=== PATIENT | male | born 1950 | race Caucasian/White ===

== ENCOUNTER 2018-02-01 12:27 | Emergency (ER) | payer MEDICARE, BC ==
[~2018-02-01] VITALS: Ht 188 cm; Wt 131.5 kg
[2018-02-01 12:36] VITALS: BP 172/068; Ht 188 cm; Wt 131.5 kg
[2018-02-01 13:33] LABS: BASOPHILS 0.2 % (0-2); EOSINOPHILS 0.5 % (0-7); HEMATOCRIT 30.6 % (42.0-54.0); HEMOGLOBIN 9.7 g/dL (13.5-17.5); IMMATURE GRANULOCYTES 0.2 % (0-5); LYMPHOCYTES 13.1 % (15-50); MCHC 31.7 g/dL (31.0-37.0); MCV 88.4 fL (80.0-100.0); MEAN PLATELET VOLUME 10.4 fL (7.4-10.4); MONOCYTES 7.8 % (2-11); NEUTROPHILS 78.2 % (40-80); PLATELET COUNT 87 10x3/uL (130-400); RBC 3.46 10x6/uL (4.20-6.10); RDW 16.7 % (11.5-14.5); WBC 5.5 10x3/uL (4.8-10.8)
[2018-02-01 13:47] LABS: ALBUMIN 2.3 g/dL (3.4-5.0); ALKALINE PHOSPHATASE 180 U/L (46-116); ALT (SGPT) 21 U/L (10-68); BILIRUBIN - TOTAL 1.54 mg/dL (0.2-1.3); CALC OSMOLALITY 280 mosm/kg (275-300); CALCIUM 9.1 mg/dL (8.5-10.1); CARBON DIOXIDE 28.9 mmol/L (21.0-32.0); CHLORIDE - SERUM 102 mmol/L (98-107); CREATININE - SERUM 1.1 mg/dL (0.6-1.3); GLUCOSE 90 mg/dL (74-106); POTASSIUM - SERUM 3.6 mmol/L (3.5-5.1); PROTEIN - SERUM 6.3 g/dL (6.4-8.2); SODIUM 140 mmol/L (136-145); UREA NITROGEN 19 mg/dL (7-18); eGFR NON AFRICAN AMERICAN 71 mL/min (90-120)
[2018-02-01 13:53] LABS: LIPASE 44 U/L (73-393); PLATELET ESTIMATE DECREASED; TROPONIN-I < 0.017 ng/mL (0.000-0.060)
[2018-02-01 14:06] LABS: C-REACTIVE PROTEIN 31.7 mg/dL (0.0-0.9)
[2018-02-01 15:36] LABS: APPEARANCE HAZY (CLEAR); COLOR YELLOW (YELLOW); GLUCOSE NEGATIVE (NEGATIVE); KETONE SMALL mg/dL (NEGATIVE); NITRITE POSITIVE (NEGATIVE); PROTEIN TRACE mg/dL (NEGATIVE); SPECIFIC GRAVITY 1.015 (1.005-1.020)
[2018-02-01 15:37] LABS: BACTERIA MANY /hpf (NONE SEEN); BILIRUBIN 2+ (NEGATIVE); EPITHELIAL CELLS NSEEN /hpf (0-5); RED CELLS - URINE OCC /hpf (0-5); WHITE CELLS - URINE >50 /hpf (0-5)
--- NOTE | 2018-02-02 10:54 | NUR ---
Iza Espitia with [facility], request ER information in order to assist with [email or web address] Faxed required informatin to Iza Espitia @[phone]. Hannah Jarrett RN CM
== END 2018-02-20 13:06 | disposition home or self-care (01) ==
LOC: D.ER 12:27
PROVIDERS: Family Medicine
DX: G89.18 Other acute postprocedural pain (principal); R26.2 Difficulty in walking, not elsewhere classified